=== PATIENT | male | born 1965 | race Caucasian/White ===

== ENCOUNTER → 2017-09-29 | Outpatient (CLI) | payer BC ==
--- NOTE | 2017-09-30 07:18 | CT ---
EXAMINATION TYPE: CT pelvis w con DATE OF EXAM: 09/29/2017 COMPARISON: CT abdomen and pelvis September 19, 2016. HISTORY: Patient complains of left groin pain with history of prior hernia. CT DLP: 882 mGycm Automated exposure control for dose reduction was used. CONTRAST: Performed with IV Contrast, patient injected with 100 mL of Omnipaque 300. FINDINGS: There is no suspicious fat or bowel containing inguinal hernia bilaterally. No suspicious groin adeno juan is present. There is no significant change from prior CT. There are scattered pelvic phleboliths. Visualized bowel shows no suspicious dilatation. Visualized p ortion of both kidneys and bladder is unremarkable. There is facet arthropathy lower lumbar spine. There is fairly moderate joint space loss in both hips redemonstrated. IMPRESSION: NO SUSPICIOUS BOWEL OR FAT-CONTAINING INGUINAL HERNIA. NO SIGNIFICANT CHANGE FROM PRIOR CT. NO SUSPIC IOUS FINDINGS SEEN TO ACCOUNT FOR PATIENT'S SYMPTOMS.
== END | disposition home or self-care (01) ==
LOC: RADCTMAIN 17:07
PROVIDERS: ATTEND Surgery
DX: R10.30 Lower abdominal pain, unspecified (principal)
CPT/HCPCS: 72193; Q9967

== ENCOUNTER 2018-01-25 19:38 | Emergency (ER) | payer BC ==
[2018-01-25 19:54] VITALS: BP 143/83; PULSE 84; RESP 18; TEMP 98
[2018-01-25] MEDS ORDERED: DIPH,PERTUS(ACELL)TETVAC-LF 0.5 ML VIAL IM ONE (20:35)
[2018-01-25] MEDS ORDERED: GELATIN SPONGE,ABSORB (SMALL) 1 EACH SPONGE TOPICAL STA (20:59)
[2018-01-25] MEDS ORDERED: CEPHALEXIN 500MG STARTER PACK 4 CAP BTL PO STA (21:00)
--- NOTE | 2018-01-25 21:09 | ED ---
Wound/Laceration HPI - General Chief Complaint: Wound/Laceration Stated Complaint: LACERATION LEFT CHEEK Time Seen by Provider: 01/25/18 20:32 Source: patient Mode of arrival: ambulatory Limitations: no limitations - History of Present Illness Initial Comments: 52-year-old male patient presents to the emergency department today for evaluation of a left-sided facial injury. Patient states that he was out chopping down some branches and a small tree when he fell backwards and the tree struck in the face. He states that he did have a lot of bleeding but was able to get it to stop. He denies any loss of consciousness with the injury. Denies any neck or back pain. Denies any difficulty opening or closing his mouth. Denies any pain around his eye. States he is unsure when his last tetanus vaccine was given. Patient denies any headache, chest pain, shortness of breath, dizziness, weakness, abdominal pain, nausea, vomiting, or difficulties with bowel movements or urination. - Related Data Previous Rx's Medication Instructions Recorded Cephalexin [Keflex] 500 mg PO Q6H #28 cap 01/25/18 Allergies Allergy/AdvReac Type Severity Reaction Status Date / Time No Known Allergies Allergy Verified 01/25/18 19:52 Review of Systems ROS Statement: Those systems with pertinent positive or pertinent negative responses have been documented in the HPI. ROS Other: All systems not noted in ROS Statement are negative. Past Medical History Past Medical History: No Reported History History of Any Multi-Drug Resistant Organisms: None Reported Past Surgical History: Hernia Repair Past Psychological History: No Psychological Hx Reported Smoking Status: Never smoker Past Alcohol Use History: Occasional Past Drug Use History: Marijuana General Exam Limitations: no limitations General appearance: alert, in no apparent distress, other (This is a well- developed, well-nourished adult male patient in no acute distress. Vital signs upon presentation are temperature 98.0F, pulse 84, respirations 18, blood pressure 143/83, pulse ox 99% on room air.) Eye exam: Present: normal appearance, PERRL, EOMI. Absent: scleral icterus, conjunctival injection, periorbital swelling, periorbital tenderness ENT exam: Present: normal exam, normal oropharynx, mucous membranes moist Neck exam: Present: normal inspection, full ROM, other (Nontender, no step-off, no deformity to firm midline palpation of the posterior cervical spine. Full range of motion without pain or limitation.). Absent: tenderness, meningismus, lymphadenopathy Respiratory exam: Present: normal lung sounds bilaterally. Absent: respiratory distress, wheezes, rales, rhonchi, stridor Cardiovascular Exam: Present: regular rate, normal rhythm, normal heart sounds. Absent: systolic murmur, diastolic murmur, rubs, gallop, clicks Back exam: Present: normal inspection. Absent: vertebral tenderness Neurological exam: Present: alert, oriented X3, CN II-XII intact Psychiatric exam: Present: normal affect, normal mood Skin exam: Present: warm, dry, intact, normal color, abrasion (There is a deep abrasion noted to the left maxillary area of the face. There is no surrounding bony tenderness or step-off noted. Bleeding is currently controlled.). Absent : rash Course Vital Signs 01/25/18 19:53 Temperature 98 F Pulse Rate 84 Respiratory 18 Rate Blood Pressure 143/83 O2 Sat by Pulse 99 Oximetry Procedures - Laceration Laceration #1 Time Out Performed: Yes Indication: other (Deep abrasion) Site: face Description: avulsion Depth: simple, single layer Anesthesia Technique: local infiltration Amount (mls): 2 Pre-repair: wound explored, irrigated extensively Patient Tolerated Procedure: well, no complications Additional Comments: Skin avulsion, no sutures required, performed anesthesia for extensive irrigation Medical Decision Making - Medical Decision Making 52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 Physical examination reveals a 2 cm x 1 cm skin avulsion to the left maxillary area. We did provide local anesthesia and extensive irrigation to the area. He was educated regarding signs or symptoms of infection. We'll put him on Keflex as the wound was quite dirty. He is instructed to follow-up with plastics for further evaluation of the wound. He is instructed to return here immediately for any new, worsening, or concerning symptoms. He verbalizes understanding and agrees with this plan. Disposition Clinical Impression: Avulsion of skin of face Disposition: HOME SELF-CARE Condition: Good Instructions: Skin Avulsion (ED) Additional Instructions: Keep wound clean and dry. Monitor for signs or symptoms of infection including but not limited to swelling, drainage, redness, fevers, or chills. Follow-up with plastic surgeon for evaluation of the wound. Follow up with your primary care physician for recheck in 1-2 days. Return here immediate for any new, worsening, or concerning symptoms. Prescriptions: Cephalexin [Keflex] 500 mg PO Q6H #28 cap Referrals: Bernarda Vail MD [Primary Care Provider] - 1-2 days Kaz Donato DO [Doctor of Osteopathic Medicine] - 1-2 days Time of Disposition: 21:09
== END 2018-01-25 21:14 | disposition home or self-care (01) ==
LOC: EC 19:38
DX: S01.80XA Unspecified open wound of other part of head, initial encounter (principal); Z23 Encounter for immunization; W18.30XA Fall on same level, unspecified, initial encounter; Y93.89 Activity, other specified; Y92.89 Other specified places as the place of occurrence of the external cause
CPT/HCPCS: 90471; 90715; 99282

== ENCOUNTER 2018-09-13 18:54 | Emergency (ER) | payer BC ==
[2018-09-13 19:05] VITALS: TEMP 98.5
--- NOTE | 2018-09-13 19:32 | ED ---
Lower Extremity Injury HPI <Jared Knutson - Last Filed: 09/13/18 21:04> - General Source: patient, RN notes reviewed Mode of arrival: wheelchair Limitations: no limitations <Dai Layton - Last Filed: 09/13/18 21:22> - General Chief Complaint: Extremity Injury, Lower Stated Complaint: knee injury Time Seen by Provider: 09/13/18 19:06 - History of Present Illness Initial Comments: This is a 52-year-old male who presents to the emergency department with chief complaint of left knee injury. Patient states approximately one hour ago he was cutting down trees. He states that he cut one down, tripped over it and fell to the ground with his knees flexed. When he fell on top of the tree it flipped over and landed back on his left knee. Patient states he is unable to get up and ambulate and had to crawl up the hill. He states he is unable to bear weight due to the pain. Reports pain is made worse with flexion of the knee. He reports most of the pain is at the lateral aspect of the thigh. Denies any other injuries or trauma. Denies fever, chills, chest pain, shortness of breath, abdominal pain, nausea or vomiting, numbness or tingling, headache or vision changes. (Dai Layton) - Related Data Allergies Allergy/AdvReac Type Severity Reaction Status Date / Time No Known Allergies Allergy Verified 09/13/18 19:04 Review of Systems ROS Other: All systems not noted in ROS Statement are negative. <Jared Knutson - Last Filed: 09/13/18 21:04> ROS Other: All systems not noted in ROS Statement are negative. <Dai Layton - Last Filed: 09/13/18 21:22> ROS Statement: Those systems with pertinent positive or pertinent negative responses have been documented in the HPI. Past Medical History Past Medical History: No Reported History History of Any Multi-Drug Resistant Organisms: None Reported Past Surgical History: Hernia Repair Additional Past Surgical History / Comment(s): eye surgery Past Psychological History: No Psychological Hx Reported Smoking Status: Never smoker Past Alcohol Use History: Occasional Past Drug Use History: Marijuana <Dai Layton - Last Filed: 09/13/18 21:22> General Exam <Jared Knutson - Last Filed: 09/13/18 21:04> Limitations: no limitations <Dai Layton - Last Filed: 09/13/18 21:22> - General Exam Comments Initial Comments: General: Awake and alert, well-developed; in no apparent distress. Patient lying comfortably on ED stretcher. HEENT: Head atraumatic, normocephalic. Pupils are equal, round and reactive to light. Extraocular movements intact. Oropharynx moist without erythema or exudate. Neck: Supple. Normal ROM. Cardiovascular: Regular rate and rhythm. No murmurs, rubs or gallops. Chest symmetrical. Respiratory: Lungs clear to auscultation bilaterally. No wheezes, rales or rhonchi. Normal respiratory effort with no use of accessory muscles. Musculoskeletal: Limited range of motion with flexion of the left knee due to pain. There is generalized soft tissue swelling and tenderness of the knee, especially superior to the patella. Palpable defect at the patellar tendon. Sensation is intact. Pedal pulses are 2+ equal and palpable bilaterally. Skin: [place], warm and dry. Neurological: Alert and oriented x3. CN II-XII grossly intact. Speech is fluent and answers are appropriate. No focal neuro deficits. Psychiatric: Normal mood and affect. No overt signs of depression or anxiety noted. (Dai Layton) Course <Jared Knutson - Last Filed: 09/13/18 21:04> <Dai Layton - Last Filed: 09/13/18 21:22> Vital Signs 09/13/18 19:03 Temperature 98.5 F Pulse Rate 100 Respiratory 18 Rate Blood Pressure 129/86 O2 Sat by Pulse 97 Oximetry - Reevaluation(s) Reevaluation #1: Patient is resting comfortably on ED stretcher at this time. The case has been discussed with attending physician, Dr. Knutson. X-ray does reveal avulsion fracture to the superior patella indicating a tendon avulsion. There is a palpable defect also at the location of the patellar tendon. I have a high clinical suspicion for a partial patellar tendon tear as well as a quadriceps tendon avulsion. Dr. Knutson will be in contact with on-call orthopedics for plan of care. 09/13/18 20:14 (Dai Layton) Reevaluation #2: 09/13/18 21:04 PA supervision: I personally do a [id number] evaluation of the patient did discuss the findings with him. Patient did have an injury to his left knee he was struck by a log that he was cutting the came back and hit him. X-rays do show evidence of a superior patellar fracture clinically there does seem to be a defect over the patellar tendon between the superior portion of the patella and the fragment seen on x-ray. I did discuss the case with Dr. Samson the patient will be placed in a knee immobilizer and follow-up tomorrow with orthopedics. (Jared Knutson) Medical Decision Making <Jared Knutson - Last Filed: 09/13/18 21:04> - Radiology Data Radiology results: report reviewed <Dai Layton - Last Filed: 09/13/18 21:22> - Medical Decision Making This is a 52-year-old male who presents to the emergency department with chief complaint of left knee injury. On physical examination, there is swelling and tenderness superior to the patella as well as a palpable defect at the patellar tendon. Patient is not bearing weight or ambulating. An x-ray of the left knee was obtained which revealed evidence for a tendon avulsion with fracture fragments at the superior patella. Case was discussed with attending physician , Dr. Knutson who also evaluated the patient. He was in contact with Dr. Samson for plan of care. Recommendation is to follow up outpatient. A knee immobilizer was placed and patient tolerated well without complication. He is provided with contact information to follow up with Dr. Samson in the morning. Patient will also be provided with a prescription for crutches. Recommended rest, ice and Tylenol or Motrin as needed. Patient is in no acute distress and will be discharged home at this time. He is in agreement with plan and voices understanding. All questions have been answered. (Dai Layton) - Radiology Data Left knee x-ray impression: Anterior soft tissue swelling with displacement of the spurring above the patella that suggests tendon avulsion injury. (Dai Layton) Disposition <Jared Knutson - Last Filed: 09/13/18 21:04> Is patient prescribed a controlled substance at d/c from ED?: No Time of Disposition: : <Dai Layton - Last Filed: 09/13/18 21:22> Clinical Impression: Avulsion of patellar tendon, Quadriceps tendon rupture Disposition: HOME SELF-CARE Condition: Good Instructions: Avulsion Fracture (ED), Tendon Rupture (ED) Additional Instructions: Please follow up with [facility], Dr. Samson tomorrow morning. Please follow up with primary care provider within 1-2 days. Return to emergency department if symptoms should worsen or any concerns arise. Referrals: Bernarda Vail MD [Primary Care Provider] - 1-2 days Royce Samson MD [STAFF PHYSICIAN] - 1-2 days
--- NOTE | 2018-09-13 19:57 | XR ---
EXAMINATION TYPE: XR knee complete LT DATE OF EXAM: 09/13/2018 COMPARISON: 09/11/1716 HISTORY: Knee pain TECHNIQUE: 3 views FINDINGS: There is calcification above the patella consistent with fractured spur compared to last ex am. The femur and tibia and fibula appear intact. Joint spaces are fairly normal. IMPRESSION: Anterior soft tissue swelling with displacement of the spurring above the patella that casiano ggests tendon avulsion injury.
[2018-09-13] MEDS ORDERED: IBUPROFEN 800 MG TAB PO STA (20:51)
[2018-09-13 21:41] VITALS: BP 145/86; PULSE 89; RESP 16
== END 2018-09-13 21:40 | disposition home or self-care (01) ==
LOC: EC 18:54
DX: S76.112A Strain of left quadriceps muscle, fascia and tendon, initial encounter (principal); Z98.890 Other specified postprocedural states; W01.0XXA Fall on same level from slipping, tripping and stumbling without subsequent striking against object, initial encounter; Y93.89 Activity, other specified
CPT/HCPCS: 73562; 99283; L1830

== ENCOUNTER → 2019-05-11 | Outpatient (CLI) | payer BC ==
--- NOTE | 2019-05-11 15:06 | US ---
EXAMINATION TYPE: US thyroid st tissue head/neck DATE OF EXAM: 05/11/2019 COMPARISON: NONE CLINICAL HISTORY: R22.1 Swelling, mass, lump in neck. Patient states feeling a lump when he swallows. Not on thyroid meds. GLAND SIZE: Right Lobe: 4.1 x 1.7 x 1.9 cm Overall Parenchyma: heterogenous Left Lobe: 2.8 x 1.6 x 1.6 cm Overall Parenchyma: heterogeneous Isthmus Thickness: 0.6 cm NODULES RIGHT: # of nodules measured on right: 1 1. 0.5 x 0.6 x 0.3 cm cystic nodule at the lower pole with well-defined margins. This nodule is wid er than tall and shows no intranodular vascularity. Prior size: No prior LEFT: # of nodules measured on left: 1 1. 0.5 X 0.5 x 0.3 cm mixed nodule at the mid pole with well-defined margins. This nodule is wider than tall and shows no intranodular vascularity. Prior size: No prior ISTHMUS: # of nodules measured in the isthmus: 0 Bilateral neck scanned. Prominent lymph node appearing lesion seen lateral to left thyroid gland - 1 .7 x 1.0 x 0.6 cm. IMPRESSION: Heterogeneous thyroid tissue suggestive of thyroiditis. No sizable nodule greater than 1 cm.
== END | disposition home or self-care (01) ==
LOC: RADUSWWP 12:56
PROVIDERS: ATTEND Otolaryngology
DX: E07.89 Other specified disorders of thyroid (principal)
CPT/HCPCS: 76536

== ENCOUNTER → 2019-11-28 | Outpatient (CLI) | payer BC ==
--- NOTE | 2019-11-29 08:27 | US ---
EXAMINATION TYPE: US thyroid st tissue head/neck DATE OF EXAM: 11/28/2019 COMPARISON: US CLINICAL HISTORY: E04.1 thyroid nodule, R59.0 L neck enlarged lymph. GLAND SIZE: Right Lobe: 4.8 x 1.9 x 1.9 cm Overall Parenchyma: homogenous Left Lobe: 3.4 x 1.7 x 1.6 cm Overall Parenchyma: homogeneous Isthmus Thickness: 0.6 cm NODULES RIGHT: # of nodules measured on right: 1 1. 0.5 X 0.4 x 0.3 cm hypoechoic mixed nodule at the mid pole with well-defined margins. This nodu le is wider than tall and shows no intranodular vascularity. Prior size: not previously seen; also, inferior pole cyst seen last US not seen today LEFT: # of nodules measured on left: 1 1. 0.5 X 0.5 x 0.4 cm hypoechoic mixed nodule at the mid pole with well-defined margins; calcificat ions noted at periphery shows no intranodular vascularity. Prior size: 0.5 x 0.5 x 0.3 cm ISTHMUS: # of nodules measured in the isthmus: 0 Bilateral neck scanned: lymph node is seen upper lateral neck = 1.2 x 0.9 x 0.9cm. IMPRESSION: Stable subcentimeter left thyroid nodule and new subcentimeter right thyroid nodule. Nonv isualization of the previously seen cystic nodule on the right. No greater than 1 cm nodule.
== END | disposition home or self-care (01) ==
LOC: RADUSWWP 15:43
PROVIDERS: ATTEND Otolaryngology
DX: E04.1 Nontoxic single thyroid nodule (principal)
CPT/HCPCS: 76536

== ENCOUNTER → 2020-12-13 | Outpatient (CLI) | payer BC ==
--- NOTE | 2020-12-13 16:08 | US ---
EXAMINATION TYPE: US thyroid st tissue head/neck DATE OF EXAM: 12/13/2020 COMPARISON: NONE CLINICAL HISTORY: E04.1 THYROID NODULE. 6 month follow up GLAND SIZE: Right Lobe: 4.0 x 1.4 x 2.2 cm Overall Parenchyma: homogenous Left Lobe: 2.8 x 1.2 x 2.1 cm Overall Parenchyma: homogeneous Isthmus Thickness: 0.6 cm NODULES RIGHT: # of nodules measured on right: tiny, less then 3mm cystic areas seen, area seen previously not noted today LEFT: # of nodules measured on left: 1 1. 0.5 X 0.5 x 0.3 cm mixed cystic and solid nodule, which is wider than tall, with smooth margins, without echogenic foci. Prior size: 0.5 x 0.5 x 0.4 cm ISTHMUS: # of nodules measured in the isthmus: 0 Bilateral neck scanned, no evidence of lymphadenopathy. IMPRESSION: Tiny stable mixed echogenicity nodule within the left lobe thyroid. Follow-up is recommended. 2017 ACR TI-RADS LEVEL: TR-RADS 3 - Mildly Suspicious: Follow if > 1.5 cm, FNA if > 2.5 cm *Highest TI-RADS level nodule reported
== END | disposition home or self-care (01) ==
LOC: RADUSWWP 12:49
PROVIDERS: ATTEND Otolaryngology
DX: E04.1 Nontoxic single thyroid nodule (principal)
CPT/HCPCS: 76536

== ENCOUNTER → 2022-08-01 | Outpatient (CLI) | payer BC ==
--- NOTE | 2022-08-01 15:25 | US ---
EXAMINATION TYPE: US thyroid st tissue head/neck DATE OF EXAM: 08/01/2022 COMPARISON: NONE CLINICAL HISTORY: E04.1 THYROID NODULE. GLAND SIZE: Right Lobe: 3.8 x 1.8 x 1.7 cm Overall Parenchyma: homogenous Left Lobe: 3.1 x 1.9 x 1.4 cm Overall Parenchyma: homogeneous Isthmus Thickness: 0.5 cm NODULES RIGHT: # of nodules measured on right: 1 1. 0.5 X 0.4 x 0.4 cm, mid, mixed cystic and solid, hypoechoic nodule, which is wider than tall, wi th smooth margins, without echogenic foci. Prior size: 0.5 x 0.4 x 0.3 cm LEFT: # of nodules measured on left: 1 1. 0.3 X 0.2 x 0.4 cm, mid lateral, mixed cystic and solid, anechoic nodule, which is wider than ta ll, with smooth margins, without echogenic foci. Prior size: 0.5 x 0.2 x 0.4 cm ISTHMUS: # of nodules measured in the isthmus: 0 Bilateral neck scanned, no evidence of lymphadenopathy. IMPRESSION: Nonspecific thyroid nodularity.
== END | disposition home or self-care (01) ==
LOC: RADUSWWP 14:54
PROVIDERS: ATTEND Otolaryngology
DX: E04.1 Nontoxic single thyroid nodule (principal)
CPT/HCPCS: 76536

== ENCOUNTER → 2023-03-13 | Outpatient (CLI) | payer BC ==
[2023-03-13 20:39] LABS: Basophils # (A) 0.03 X 10*3/uL (0.00-0.10); Basophils % (A) 0.5 %; Eosinophils % (A) 1.8 %; HCT 46.6 % (39.6-50.0); Immature Grans, Automated 0.2 %; Lymphocytes # (A) 2.28 X 10*3/uL (0.90-5.00); Lymphocytes % (A) 41.4 %; MCH 29.4 pg (27.0-32.0); MCHC 32.2 g/dL (32.0-37.0); MCV 91.2 fL (80.0-97.0); Mean Platelet Volume 11.5 fL (9.5-12.2); Monocytes # (A) 0.59 X 10*3/uL (0.20-1.00); Monocytes % (A) 10.7 %; NRBC Per 100 WBC 0 /100 WBCS (0.0-0.0); Neutrophils % (A) 45.4 %; Platelet Count 260 X 10*3/uL (140-440); RBC 5.11 X 10*6/uL (4.40-5.60); RDW 12.7 % (11.5-14.5); WBC 5.51 X 10*3/uL (4.50-10.00)
== END | disposition home or self-care (01) ==
LOC: LABWHC1 10:58
PROVIDERS: ATTEND Internal Medicine Critical Care Medicine
DX: Z01.812 Encounter for preprocedural laboratory examination (principal)
CPT/HCPCS: 36415; 85025

== ENCOUNTER → 2023-03-27 | Outpatient (CLI) | payer BC ==
[2023-03-27 15:09] LABS: Basophils # (A) 0.03 X 10*3/uL (0.00-0.10); Basophils % (A) 0.4 %; Eosinophils # (A) 0.12 X 10*3/uL (0.04-0.35); Eosinophils % (A) 1.8 %; HCT 46.8 % (39.6-50.0); Immature Grans, Automated 0.3 %; Lymphocytes # (A) 2.57 X 10*3/uL (0.90-5.00); MCHC 32.1 g/dL (32.0-37.0); MCV 90.3 fL (80.0-97.0); Mean Platelet Volume 11.4 fL (9.5-12.2); Monocytes # (A) 0.62 X 10*3/uL (0.20-1.00); Monocytes % (A) 9.2 %; NRBC Per 100 WBC 0 /100 WBCS (0.0-0.0); Neutrophils % (A) 50.3 %; Platelet Count 248 X 10*3/uL (140-440); RBC 5.18 X 10*6/uL (4.40-5.60); RDW 12.7 % (11.5-14.5); WBC 6.76 X 10*3/uL (4.50-10.00)
[2023-03-27 22:10] LABS: ALT 42 U/L (10-49); AST 21 U/L (14-35); African American GFR (CKD) 90.5 (60.0-200.0); Albumin 4.5 g/dL (3.8-4.9); Albumin/Globulin Ratio 2.17 (1.60-3.17); Alkaline Phosphatase 44 U/L (41-126); BUN/Creat Ratio 18.21 Ratio (12.00-20.00); Blood Urea Nitrogen 19.3 mg/dL (9.0-27.0); Carbon Dioxide 29.9 mmol/L (20.0-27.5); Chloride 106 mmol/L (96-109); Globulin 2.1 g/dL (1.6-3.3); Glucose 93 mg/dL (70-110); LDL Cholesterol,Calculated 106.2 mg/dL (0.0-131.0); Non-African American GFR(CKD) 78.1 (60.0-200.0); Potassium 4.9 mmol/L (3.5-5.5); Sodium 144 mmol/L (135-145); Total Protein 6.6 g/dL (6.2-8.2)
== END | disposition home or self-care (01) ==
LOC: LABWHC1 12:01
PROVIDERS: ATTEND Internal Medicine
DX: Z00.00 Encounter for general adult medical examination without abnormal findings (principal); Z11.59 Encounter for screening for other viral diseases; Z12.5 Encounter for screening for malignant neoplasm of prostate
CPT/HCPCS: 36415; 80053; 80061; 84153; 84443; 85025; 86803

== ENCOUNTER → 2024-01-04 | Outpatient (CLI) | payer BC ==
--- NOTE | 2024-01-04 22:12 | US ---
EXAMINATION TYPE: US venous doppler duplex UE RT DATE OF EXAM: 01/04/2024 COMPARISON: NONE CLINICAL INDICATION: Male, 58 years old with history of I80.8 PHLEBITIS OF ARM; Right arm pain x coup le months SIDE PERFORMED: Right TECHNIQUE: Grayscale, color doppler, spectral doppler imaging performed of the deep veins of the rig ht upper extremity. FINDINGS: There is normal flow, compressibility and vascular waveforms. Right Arm: Appears negative for DVT IMPRESSION: No evidence for DVT within the right upper extremity.
== END | disposition home or self-care (01) ==
LOC: RADUSWWP 15:25
PROVIDERS: ATTEND Internal Medicine
DX: I80.8 Phlebitis and thrombophlebitis of other sites (principal); M79.601 Pain in right arm